=== PATIENT | female | born 1995 | race African-American/Black ===

== ENCOUNTER 2016-12-27 11:03 | Emergency (ER) | payer BC, OTHER, MEDICAID ==
[2016-12-27] MEDS ORDERED: METOCLOPRAMIDE HCL ORAL SOLN 10 MG/10 ML UDCUP PO ONE (11:51)
[2016-12-27] MEDS ORDERED: MAG HYDROX/AL HYDROX/SIMETH SUSP 30 ML UDCUP PO ONE (11:51)
[2016-12-27] MEDS ORDERED: LIDOCAINE 2% VISCOUS SOLN 20 ML UDCUP PO ONE (11:51)
--- NOTE | 2016-12-27 12:04 | ER Document Report ---
ED Medical Screen (RME) - General Chief Complaint: Chest Pain Stated Complaint: CHEST PAIN Time Seen by Provider: 12/27/16 11:51 Notes: Patient is a 21-year-old female, 8-month-old presents with intermittent substernal chest pain and SOB. She says the chest pain is a burning sensation and worse when she lies down. She has had increasing shortness of breath over the past few days. She denies abdominal pain, leakage of fluid, leg swelling, vaginal bleeding, cough, nausea or vomiting. PE: Tachycardia, Lungs CTAB, No respiratory distress. I have greeted and performed a rapid initial assessment of this patient. A comprehensive ED assessment and evaluation of the patient, analysis of test results and completion of the medical decision making process will be conducted by additional ED providers. TRAVEL OUTSIDE OF THE [place] IN LAST 30 DAYS: No - Related Data Allergies/Adverse Reactions: No Known Allergies Allergy (Unverified 12/27/16 11:15) Past Medical History - General Information source: Patient - Social History Chew tobacco use (# tins/day): No Frequency of alcohol use: None Drug Abuse: None Family history: Reviewed & Not Pertinent Renal/ Medical History: Denies: Hx Peritoneal Dialysis Physical Exam - Vital signs Vitals: Temp Pulse Resp BP Pulse Ox 97.9 F 75 16 118/70 98 12/27/16 11:14 12/27/16 11:14 12/27/16 11:14 12/27/16 11:14 12/27/16 11:14 Course - Vital Signs Vital signs: Temp Pulse Resp BP Pulse Ox 97.9 F 75 16 118/70 98 12/27/16 11:14 12/27/16 11:14 12/27/16 11:14 12/27/16 11:14 12/27/16 11:14 - Laboratory Result Diagrams: 12/27/16 12:55 12/27/16 12:55 Laboratory results interpreted by me: 12/27/16 12/27/16 12/27/16 12:55 12:55 12:55 WBC 11.3 H RBC 5.70 H MCV 77 L MCH 25.0 L RDW 15.6 H D-Dimer 1.42 H Carbon Dioxide 21 L BUN 4 L Creatinine 0.50 L
[2016-12-27 13:08] LABS: ABSOLUTE LYMPHOCYTES (AUTO) 2.2 10^3/uL (0.5-4.7); ABSOLUTE MONOCYTES (AUTO) 0.9 10^3/uL (0.1-1.4); ABSOLUTE NEUT (AUTO) 8.1 10^3/uL (1.7-8.2); BASOPHILS % (AUTO) 0.2 % (0-2); EOSINOPHILS % (AUTO) 0.4 % (0-6); HEMATOCRIT 43.8 % (36.0-47.0); HEMOGLOBIN 14.3 g/dL (12.0-15.5); HGB HCT DIFFERENCE -0.9; LYMPHOCYTES % (AUTO) 19.7 % (13-45); MEAN CORPUSCULAR HGB CONC 32.6 g/dL (32.0-36.0); MEAN CORPUSCULAR VOLUME 77 fl (80-97); RED CELL DISTRIBUTION WIDTH 15.6 % (11.5-14.0); SEGMENTED NEUTROPHILS % (AUTO) 71.7 % (42-78); WHITE BLOOD COUNT 11.3 10^3/uL (4.0-10.5)
[2016-12-27 13:25] LABS: ANION GAP 11 (5-19); BLOOD UREA NITROGEN 4 mg/dL (7-20); CALCIUM 9.8 mg/dL (8.4-10.2); CARBON DIOXIDE 21 mmol/L (22-30); CHLORIDE 106 mmol/L (98-107); GLUCOSE 76 mg/dL (75-110); POTASSIUM 4.4 mmol/L (3.6-5.0); SODIUM 138.2 mmol/L (137-145)
[2016-12-27] MEDS ORDERED: FAMOTIDINE 20 MG TABLET PO ONE (14:25)
--- NOTE | 2016-12-27 15:22 | ER Document Report ---
ED General - General Chief Complaint: Chest Pain Stated Complaint: CHEST PAIN Time Seen by Provider: 12/27/16 11:51 Mode of Arrival: Ambulatory Information source: Patient Notes: This is a 21-year-old female at 34 +1 WGA who presents with pleuritic chest pain and shortness of breath which has been present and intermittent for the past 2 weeks, but she had an episode which was more severe this morning, prompting her presentation to the ER. No previous problems with the . No leg pain or swelling. No contractions or abdominal pain. Good movement today. No recent cough, congestion, fevers. Next OB appointment in 2 days. Patient received GI cocktail by provider in triage and she states this did help some with her pain for a few minutes, but that the pleuritic pain has returned. TRAVEL OUTSIDE OF THE [place] IN LAST 30 DAYS: No - Related Data Allergies/Adverse Reactions: No Known Allergies Allergy (Unverified 12/27/16 11:15) Past Medical History - General Information source: Patient - Social History Smoking Status: Never Smoker Chew tobacco use (# tins/day): No Frequency of alcohol use: None Drug Abuse: None Family History: Reviewed & Not Pertinent Patient has suicidal ideation: No Patient has homicidal ideation: No Renal/ Medical History: Denies: Hx Peritoneal Dialysis Review of Systems - Review of Systems Constitutional: No symptoms reported. denies: Chills, Fever EENT: No symptoms reported Cardiovascular: See HPI, Chest pain Respiratory: See HPI, Hurts to breathe. denies: Cough Gastrointestinal: No symptoms reported. denies: Abdominal pain, Nausea, Vomiting Genitourinary: No symptoms reported. denies: Dysuria Musculoskeletal: No symptoms reported Skin: No symptoms reported Hematologic/Lymphatic: No symptoms reported Neurological/Psychological: No symptoms reported Physical Exam - Vital signs Vitals: Temp Pulse Resp BP Pulse Ox 97.9 F 75 16 118/70 98 12/27/16 11:14 12/27/16 11:14 12/27/16 11:14 12/27/16 11:14 12/27/16 11:14 - Notes Notes: PHYSICAL EXAMINATION: GENERAL: Well-appearing, well-nourished, pleasant and conversant and in no acute distress. HEAD: Atraumatic, normocephalic. EYES: Pupils equal round and reactive to light, extraocular movements intact, sclera anicteric, conjunctiva are normal. ENT: nares patent, oropharynx clear without exudates. Moist mucous membranes. NECK: Normal range of motion, supple without lymphadenopathy LUNGS: Breath sounds clear to auscultation bilaterally and equal. No wheezes rales or rhonchi. HEART: Regular rate and rhythm without murmurs ABDOMEN: Soft, gravid, nontender, normoactive bowel sounds. EXTREMITIES: Normal range of motion, no pitting or edema. NEUROLOGICAL: Cranial nerves grossly intact. No gross focal motor or sensory deficits appreciated. PSYCH: Normal mood, normal affect. SKIN: Warm, Dry, normal turgor, no rashes or lesions noted. Course - Re-evaluation Re-evalutation: 12/27/16 21:50 No evidence PE or DVT. Good FHT. I feel symptoms most consistent with GERD. Follow up OB this week as scheduled. Return precautions discussed. - Vital Signs Vital signs: Temp Pulse Resp BP Pulse Ox 97.6 F 78 16 111/59 L 99 12/27/16 17:40 12/27/16 17:40 12/27/16 11:14 12/27/16 17:40 12/27/16 17:40 12/27/16 15:23 - Laboratory Result Diagrams: 12/27/16 12:55 12/27/16 12:55 Laboratory results interpreted by me: 12/27/16 12/27/16 12/27/16 12:55 12:55 12:55 WBC 11.3 H RBC 5.70 H MCV 77 L MCH 25.0 L RDW 15.6 H D-Dimer 1.42 H Carbon Dioxide 21 L BUN 4 L Creatinine 0.50 L - Diagnostic Test Radiology reviewed: Reports reviewed - EKG Interpretation by Me Additional EKG results interpreted by me: 12/27/16 15:23 EKG at 1223 demonstrates sinus tachycardia with a rate of 100, nonspecific T- wave changes. No ST segment elevation or depression. Discharge - Discharge Clinical Impression: Third trimester Chest pain Qualifiers: Chest pain type: unspecified Qualified Code(s): R07.9 - Chest pain, unspecified GERD (gastroesophageal reflux disease) Qualifiers: Esophagitis presence: esophagitis presence not specified Qualified Code(s): K21.9 - Gastro-esophageal reflux disease without esophagitis Condition: Stable Disposition: HOME, SELF-CARE Additional Instructions: Reflux Disease (GERD) Gastro-Esophageal Reflux Disease (GERD) is caused by stomach acid refluxing back up into the esophagus. The valve at the end of the esophagus may be weak. This is common in persons with a hiatal hernia. GERD symptoms can include indigestion, chest pain, heartburn, or food "sticking." Certain foods, alcohol, and aspirin can make GERD worse. Treatment depends on the severity. Usually, antacids or acid-suppressing medicines are used. When the esophagus is acutely inflamed, the physician will often prescribe membrane-protective drugs such as Carafate. Some patients benefit from medication such as Reglan that tightens the valve at the top of the stomach. Avoid those foods that bring on your symptoms. For many people, these foods are coffee, chocolate, onions, garlic, and carbonated drinks. Don't use alcohol, aspirin, caffeine, or tobacco. Don't eat late at night -- within 4 hours of bedtime. Don't over-eat. If necessary, elevate the head of your bed about 4 inches so that stomach acid will not roll up into your esophagus. Call the doctor if you develop severe chest pain, inability to swallow fluids, fever, or worsening symptoms. Your US and CT today show no evidence of blood clots. Follow up with OB this week as scheduled. Avoid fried or spicy foods, as this can make your heartburn worse. Return to the ER for increased pain, breathing trouble, or worsening symptoms or concerns. Prescriptions: Ranitidine HCl [Zantac] 150 mg PO BID #30 tablet Referrals: IGNACIO MEEHAN MD [Primary Care Provider] - Follow up as needed
--- NOTE | 2016-12-27 17:11 | EKG REPORT ---
SEVERITY:- OTHERWISE NORMAL ECG - SINUS TACHYCARDIA : Confirmed by: Angelica Pedro MD 27-Dec-2016 17:10:58
--- NOTE | 2016-12-27 17:12 | EKG REPORT ---
SEVERITY:- BORDERLINE ECG - SINUS TACHYCARDIA BORDERLINE T ABNORMALITIES, DIFFUSE LEADS : Confirmed by: Angelica Pedro MD 27-Dec-2016 17:11:06
[2016-12-27 17:42] VITALS: BP 111/59
== END 2016-12-27 17:42 | disposition home or self-care (01) ==
LOC: ER 11:03
DX: K21.9 Gastro-esophageal reflux disease without esophagitis (principal); R07.9 Chest pain, unspecified; Z3A.34 34 weeks gestation of pregnancy
CPT/HCPCS: 93005; 99285; 36415; 85025; 80048; 85379; 93970; 71010; 71275; 93010; J3490 ×4

== ENCOUNTER 2017-01-23 02:43 | Inpatient (IN) | payer MEDICAID ==
[2017-01-23 03:10] LABS: APPEARANCE,URINE CLEAR; BILIRUBIN,URINE NEGATIVE (NEGATIVE); GLUCOSE, URINE NEGATIVE (NEGATIVE); KETONES,URINE TRACE mg/dL (NEGATIVE); LEUKOCYTE ESTERASE,URINE NEGATIVE (NEGATIVE); NITRITE,URINE NEGATIVE (NEGATIVE); PROTEIN,URINE NEGATIVE (NEGATIVE); URINE SPECIFIC GRAVITY 1.008; UROBILINOGEN,URINE NEGATIVE mg/dL (<2.0)
[2017-01-23] MEDS ORDERED: RINGERS SOLUTION,LACTATED 1,000 ML IV PRN ×2 (03:20→23:13)
[2017-01-23] MEDS ORDERED: PENICILLIN G-K 5 MILLION UNIT VIAL ONE ×6 (03:24→20:09)
[2017-01-23 03:29] LABS: URINE BARBITURATES SCREEN NEGATIVE; URINE METHADONE SCREEN NEGATIVE; URINE OPIATES LOW NEGATIVE; URINE PHENCYCLIDINE SCREEN NEGATIVE
[2017-01-23] MEDS ORDERED: PENICILLIN G POTASSIUM 5,000,000 UNIT in DEXTROSE 5%-WATER 100 ML IV ONE (03:30)
[2017-01-23] MEDS ORDERED: PENICILLIN G-K 5 MILLION UNIT VIAL IV PRN (03:43)
[2017-01-23 04:12] LABS: ABSOLUTE BASOPHILS # (AUTO) 0.1 10^3/uL (0.0-0.2); ABSOLUTE LYMPHOCYTES (AUTO) 2.7 10^3/uL (0.5-4.7); ABSOLUTE MONOCYTES (AUTO) 1.1 10^3/uL (0.1-1.4); BASOPHILS % (AUTO) 0.6 % (0-2); EOSINOPHILS % (AUTO) 0.2 % (0-6); HEMATOCRIT 41.4 % (36.0-47.0); HEMOGLOBIN 13.6 g/dL (12.0-15.5); HGB HCT DIFFERENCE -0.6; LYMPHOCYTES % (AUTO) 18.4 % (13-45); MEAN CORPUSCULAR HEMOGLOBIN 25.3 pg (27.0-33.4); MEAN CORPUSCULAR HGB CONC 32.9 g/dL (32.0-36.0); MEAN CORPUSCULAR VOLUME 77 fl (80-97); MONOCYTES % (AUTO) 7.5 % (3-13); RED BLOOD COUNT 5.38 10^6/uL (3.72-5.28); RED CELL DISTRIBUTION WIDTH 15.2 % (11.5-14.0); SEGMENTED NEUTROPHILS % (AUTO) 73.3 % (42-78); WHITE BLOOD COUNT 14.9 10^3/uL (4.0-10.5)
[2017-01-23] MEDS ORDERED: OXYTOCIN/NORMAL SALINE 1,000 ML IV PRN ×2 (06:50→23:13)
[2017-01-23] MEDS ORDERED: OXYTOCIN/NORMAL SALINE 20 UNIT/1,000 ML RTUINJ ONE ×2 (06:57→23:03)
[2017-01-23] MEDS: PENICILLIN G POTASSIUM 2,500,000 UNIT in DEXTROSE 5%-WATER 50 ML IV SCH ×5 (08:20→21:19)
[2017-01-23] MEDS ORDERED: MAG HYDROX/AL HYDROX/SIMETH SUSP 30 ML UDCUP ONE (08:27)
[2017-01-23] MEDS ORDERED: MAG HYDROX/AL HYDROX/SIMETH SUSP 30 ML UDCUP PO ONE (08:28)
--- NOTE | 2017-01-23 10:41 | L&D Progress Notes ---
PROGRESS NOTES Datetime Report Generated by CPN: 01/23/2017 10:41 PROGRESS NOTE Impression: Rupture of Membranes Procedures: Scalp Electrode Plan: Induction Comment: FSE applied due to difficulty keeping heart rate tracing.Pit at 12 mu-cont induction. VAGINAL EXAM Contractions: irregular SIGNATURE SIGNATURE: [id number] Signature: with User ID: [email or web address]
[2017-01-23] MEDS ORDERED: NALBUPHINE HCL INJ 10 MG/1 ML AMPULE ONE (15:22)
[2017-01-23] MEDS ORDERED: NALBUPHINE HCL INJ 10 MG/1 ML AMPULE INJ ONE (15:22)
[2017-01-23] MEDS ORDERED: FENTANYL CITRATE INJ/PF 100 MCG/2 ML AMPUL ONE (23:02)
[2017-01-23] MEDS ORDERED: EPHEDRINE SULFATE INJ 50 MG/1 ML AMPULE ONE (23:02)
[2017-01-23] MEDS ORDERED: OXYTOCIN 10 UNIT/ML VIAL ONE (23:02)
[2017-01-23] MEDS ORDERED: FENTANYL CITRATE INJ/PF 250 MCG/5 ML AMPULE ONE (23:02)
[2017-01-23] MEDS ORDERED: ACETAMINOPHEN 100 ML IV ONE (23:03)
[2017-01-23] MEDS ORDERED: MIDAZOLAM 2 MG/2 ML INJ ONE (23:03)
[2017-01-23] MEDS ORDERED: ONDANSETRON HCL INJ/PF 4 MG/2 ML SDV ONE ×2 (23:03→23:58)
[2017-01-23] MEDS ORDERED: CITRIC ACID/SODIUM CITRATE ORAL SOLN 15 ML UDCUP ONE (23:10)
[2017-01-23] MEDS ORDERED: CEFAZOLIN 2 GM/D5W RTU 2 GM/50 ML RTUPB IV ONE (23:10)
[2017-01-23] MEDS ORDERED: MEASLES,MUMPS&RUBELLA VACC/PF 0.5 ML VIAL SUBCUT PRN (23:13)
[2017-01-23] MEDS ORDERED: PROMETHAZINE HCL INJ 25 MG/1 ML VIAL IV PRN (23:13)
[2017-01-23] MEDS ORDERED: ACETAMINOPHEN 325 MG TABLET PO PRN (23:13)
[2017-01-23] MEDS ORDERED: DIPH/PERTUSS(ACELL)/TETANUS VAC/PF 0.5 ML SYR (>=10YO) IM PRN (23:13)
[2017-01-23] MEDS ORDERED: HYDROMORPHONE HCL INJ/PF 2 MG/ML AMPULE IV PRN (23:13)
[2017-01-23] MEDS ORDERED: OXYCODONE-ACETAMINOPHEN 5-325 MG TABLET PO PRN (23:13)
[2017-01-23] MEDS ORDERED: SIMETHICONE 80 MG TAB.CHEW PO PRN (23:13)
[2017-01-23] MEDS ORDERED: ACETAMINOPHEN 100 ML IV PRN (23:13)
[2017-01-24] MEDS ORDERED: KETOROLAC TROMETHAMINE INJ/PF 30 MG/1 ML SDV IV ONE ×2
--- NOTE | 2017-01-24 00:42 | Operative Report ---
Operative Report DATE OF SURGERY: 01/24/17 PREOPERATIVE DIAGNOSIS: Cephalopelvic disproportion and contracted pelvis POSTOPERATIVE DIAGNOSIS: Same OPERATION: Primary via low transverse uterine incision. SURGEON: DAMEON JOY ANESTHESIA: Spinal TISSUE REMOVED OR ALTERED: Placenta COMPLICATIONS: None ESTIMATED BLOOD LOSS: 250 cc INTRAOPERATIVE FINDINGS: The patient has a very small pelvis. The baby's head is very pointed. I would not recommend a trial PROCEDURE: Patient was taken to the OR and placed in supine position after her spinal anesthesia. She was prepared and draped in sterile fashion. Fernandez was placed for drainage of the bladder. Low transverse incision was made and carried down the level of the fascia. The fascial incision was made with knife and extended bilaterally with curved Freeman scissors. The fascia was off the rectus muscles using sharp and blunt dissection. The rectus muscles are in the midline. The peritoneum was entered without incident. Bladder blade was placed in uterine segment was identified. A low transverse incision was made creating a bladder flap. Bladder blade was placed low transverse uterine incision was made with the csafe knife and extended with fingertips. The baby was delivered with some fundal pressure. Mouth and nose were suctioned free. The cord is doubly clamped and cut. Baby is passed off to the wanigan clerk in attendance. The placenta was manually extracted with trailing membranes. The uterus was externalized wrapped in a moist lap sponge. Uterine contents wiped free. Uterus was closed with a running locking layer of 0 chromic suture using the second layer to imbricate the first completing a double layer closure of the uterus. The serosa was closed with a running 2-0 chromic stitch. The pelvis was irrigated and suctioned free of fluid the uterus was replaced in the abdomen. The abdominal wall peritoneum was closed with running 2-0 chromic stitch. Fascia was closed with a running 0 Vicryl in 2 segments. Steve's layer was brought together with 0 plain gut stitch and the skin was closed with running subcuticular 4-0 undyed Vicryl stitch. The wound was dressed mother and baby did well.
--- NOTE | 2017-01-24 01:16 | Delivery Summary ---
Del Sum A-C Datetime Report Generated by CPN: 01/24/2017 01:16 DELIVERY PERSONNEL DELIVERY PERSONNEL: ,[id number] Delivery Doctor:: Nathalia Ambriz MD Anesthesiologist:: Rachelle Chapa MD ENROLLED AGENT:: Yousuf Adame CRNA Labor and Delivery Nurse:: Divya Colon RN Insemination Worker:: Divya Colon RN Neonatal Nurse Practitioner:: WILBER Mcleod Nursery Nurse:: Chloé Downing RN Plumber Supervisor/GUEST EXPERIENCE REPRESENTATIVE: ST [facility] Plumber Supervisor/GUEST EXPERIENCE REPRESENTATIVE: Alissa Mcdermott ST MATERNAL INFORMATION Delivery Anesthesia: Spinal Medications After Delivery: Pitocin Bolus-Please Comment; Pitocin Drip 20 Units/1000ml NSS Meds After Delivery Comment: NS with Pitocin 20 units/Liter IVF bolus Maternal Complications: None LABOR SUMMARY EDC: 02/09/2017 00:00 No. Babies in Womb: 1 Attempted: No Labor Anesthesia: IV Sedation LABOR INFORMATION Reason for Induction: Not Applicable Onset of Labor: 01/23/2017 04:16 Oxytocin: Augmentation Group B Beta Strep: positive Name of Antibiotic Given: PCN G Steroids Given: None Reason Steroids Not Administered: Not Applicable MEMBRANES Membranes Rupture Method: Spontaneous Rupture of Membranes: 01/23/2017 02:00 Length of Rupture (hr): 22.00 Amniotic Fluid Color: Clear Amniotic Fluid Amount: Small Amniotic Fluid Odor: Normal STAGES OF LABOR Stage 3 hr: 0 Stage 3 min: 1 Total Time in Labor hr: 19 Total Time in Labor min: 45 VAGINAL DELIVERY Episiotomy: None Laceration Extension: N/A Laceration Type: None Sponge Count Correct: N/A Sharps Count Correct: Yes CSECTION DELIVERY Primary Indication: Arrest of Dilatation Secondary Indication: Other Other Secondary Indication: CPD CSection Urgency: Non-Scheduled CSection Incidence: Primary Labor: Labor Elective: Nonelective CSection Incision: Lower Uterine Transverse BABY A INFORMATION Delivery Date/Time: 01/24/2017 00:00 Method of Delivery: Born in Route : No : N/A Forceps: N/A Vacuum Extraction: Successful Shoulder Dystocia : No ASSISTED DELIVERY BABY A Vacuum Number of Pulls: 1 Vacuum Number of PopOffs: 0 Total Time Vacuum Applied: less than one minute Vacuum/Forceps Comment: One pull with kiwi to assist in delivery of head during section PRESENTATION/POSITION BABY A Presentation: Cephalic Cephalic Presentation: Vertex Vertex Position: OA Breech Presentation: N/A PLACENTA INFORMATION BABY A Placenta Delivery Time : 01/24/2017 00:01 Placenta Method of Delivery: Expressed Placenta Status: Delivered SCORES BABY A Heart Rate 1 min: >100 bpm Resp Effort 1 min: Good Cry Reflex Irritability 1 min: Cough or Sneeze or Pulls Away Muscle Tone 1 min: Active Motion Color 1 min: Blue/Pale Resuscitation Effort 1 min: Tactile Stimulation SCORE 1 MIN: 8 Heart Rate 5 min: >100 bpm Resp Effort 5 min: Good Cry Reflex Irritability 5 min: Cough or Sneeze or Pulls Away Muscle Tone 5 min: Active Motion Color 5 min: Body [place], Extremities Blue Resuscitation Effort 5 min: Tactile Stimulation SCORE 5 MIN: 9 INFORMATION BABY A Gestational Age at Delivery: 37.5 Gestational Status: Early Term- 37- 38.6 Weeks Outcome : Liveborn Condition : Stable Sex: Male IDENTIFICATION BABY A Infant Verification Date/Time: 01/24/2017 01:10 ID Band Number: [id number] Mother's Name Verified: Yes RN Verifying : RN Darbysmann Additional Verifying Personnel: RN Monk WEIGHT/LENGTH BABY A Infant Birthweight (gm): 2860 Infant Weight (lb): 6 Infant Weight (oz): 5 Length (in): 20.00 Length (cm): 50.80 CORD INFORMATION BABY A No. Cord Vessels: 3 Nuchal Cord : N/A Cord Blood Taken: Yes-For Eval (Mom's Blood Type - or O+) Suction: Mouth ASSESSMENT BABY A Physical Findings at Delivery: Caput Succedaneum; Molding of the Head Respirations: Appears Normal Skin to Skin: No Interior Design Instructor/ALS Called : No Infant Care By: RN Downing and CHIEF SCIENTIST Matters Transferred To: [facility] BABY B INFORMATION : N/A
--- NOTE | 2017-01-24 02:50 | Admission Physical ---
Datetime Report Generated by CPN: 01/24/2017 02:50 CURRENT ADMISSION Hx Assessment: The History has been Reviewed and is Current Chief Complaint: Suspected Ruptured Membranes Admit Plan: Initiate Labor Protocol ALLERGIES Medication Allergies: No Medication Allergies: No Known Allergies (01/23/2017) Medication Allergies: No Known Allergies (12/27/2016) Latex: No Latex Allergies Food Allergies: N/A Environmental Allergies: N/A OBSTETRICAL HISTORY EDC: 02/09/2017 00:00 : 2 Para: 0 Term: 0 : 0 SAB: 0 IAB: 1 Ectopic: 0 Livin Cesareans: 0 VBACs: 0 Multiple Births: 0 Gestational Diabetes: No Rh Sensitization: No Incompetent Cervix: No WILLIE: No Infertility: No ART Treatment: No Uterine Anomaly: No IUGR: No Hx Previous C/S: No Macrosomia: No Hx Loss/Stillborn: No PIH: No Hx : No Placenta Previa/Abruption: No Depression/PP Depression: No PTL/PROM: No Post Hemorrhage: No Current Procedures: Ultrasound Obstetrical History Comments: G1: IAB 2015 G2: current , CF screen positive SEE RECORDS Alcohol: No Marijuana : No Cocaine: No Other Illicit Drugs: No Cigarettes: Never Smoker. [id number] MEDICAL HISTORY Diabetes: No Blood Transfusion: No Pulmonary Disease (Asthma, TB): No Breast Disease: No Hypertension: No Charge Entry Surgery: No Heart Disease: No Hosp/Surgery: No Autoimmune Disorder: No Anesthetic Complications: No Kidney Disease: No Abnormal Pap Smear: No Neuro/Epilepsy: No Psychiatric Disorders: No Other Medical Diseases: No Hepatitis/Liver Disease: No Significant Family History: No Varicosities/Phlebitis: No Trauma/Violence : No Thyroid Dysfunction: No INFECTIOUS HISTORY Gonorrhea: No Genital Herpes: No Chlamydia: No Tuberculosis: No Syphilis: No Hepatitis: No HIV/AIDS Exposure: No Rash or Viral Illness: No HPV: No PHYSICAL EXAM General: Normal HEENT: Normal Neurologic: Normal Thyroid: Normal Heart: Normal Lungs: Normal Breast: Normal Back: Normal Abdomen: Normal Genitourinary Exam: Normal Extremities: Normal DTRs: Normal Pelvic Type: Adequate Physical Exam Comments: gross rom with clear fluid gbs + VAGINAL EXAM Contraction Comments: irregular FETUS A EGA: 37.4 Monitoring: External US FHR Category: Category I Admit Comment: Admit and initiate gbs prophylaxis. Allow to ambulate for 1 hr after that if fhr remains reassuring and then augment with pit if not in adequate pattern. PLANS FOR LABOR AND DELIVERY Labor and Delivery: None Other Pain Management Plans: unsure Feeding Preference: Breast Benefit of Breast Feed Discussed: Yes Circumcision: Yes INFORMED CONSENT Signature: with User ID: [email or web address]
[2017-01-24] MEDS: OXYCODONE-ACETAMINOPHEN 5-325 MG TABLET PO PRN ×3 (04:37→22:12)
[2017-01-24] MEDS: KETOROLAC TROMETHAMINE INJ/PF 30 MG/1 ML SDV IV SCH ×3 (05:18→21:42)
[2017-01-24 06:59] LABS: HEMATOCRIT 35.4 % (36.0-47.0); HGB HCT DIFFERENCE -1.2; MEAN CORPUSCULAR HEMOGLOBIN 25.3 pg (27.0-33.4); MEAN CORPUSCULAR HGB CONC 32.1 g/dL (32.0-36.0); MEAN CORPUSCULAR VOLUME 79 fl (80-97); RED BLOOD COUNT 4.49 10^6/uL (3.72-5.28); RED CELL DISTRIBUTION WIDTH 15.6 % (11.5-14.0); WHITE BLOOD COUNT 13.3 10^3/uL (4.0-10.5)
[2017-01-24 07:14] LABS: HEMOGLOBIN 11.4 g/dL (12.0-15.5)
[2017-01-24] MEDS: DOCUSATE SODIUM 100 MG CAPSULE PO SCH ×2 (10:14→17:39)
[2017-01-24] MEDS: PRENATAL VITAMIN W-O CA NO5/FE FUMARATE/FA CAPSULE PO SCH (10:15)
--- NOTE | 2017-01-24 10:19 | PDOC PROGRESS REPORT ---
Subjective-OB Subjective: Post Delivery Day: 21 year old. Denies any needs at this time Doing well, pain under control, took Percocet recently, scant bleeding, plans to breast feed, taking food well and liquids, family at BS Physical Exam (OB) Vital Signs: Temp Pulse Resp BP Pulse Ox 97.4 F 93 16 114/67 100 01/24/17 07:55 01/24/17 07:55 01/24/17 07:55 01/24/17 07:55 01/24/17 07:55 Intake & Output 01/23/17 01/24/17 01/25/17 06:59 06:59 06:59 Intake Total 500 Output Total 500 Balance 500 -500 Weight 82.35 kg - PIH/Pre-Eclampsia Clonus: Negative - Dressing Removed: No Incision: Dressing Closure Type: opsite - Lochia Lochia Amount: Scant < 10 ml Lochia Color: Rubra/Red - Abdomen Description: Tender, Soft Hernia Present: No Fundal Description: Firm, Midline Fundal Height: u/u - u/2 Objective-Diagnostic Laboratory: 01/24/17 06:33 01/24/17 06:33 WBC 13.3 H RBC 4.49 Hgb 11.4 L D Hct 35.4 L MCV 79 L MCH 25.3 L MCHC 32.1 RDW 15.6 H Plt Count 192 Assessment and Plan(PN) - Assessment and Plan (1) GBS (group B Streptococcus carrier), +RV culture, currently Is this a current diagnosis for this admission?: Yes (2) History of delivery, currently Is this a current diagnosis for this admission?: Yes - Time Spent with Patient Time with patient: Less than 15 minutes Medications reviewed and adjusted accordingly: Yes - Disposition Anticipated Discharge: Home Within: within 48 hours
[2017-01-25] MEDS: IBUPROFEN 800 MG TABLET PO SCH ×3 (05:15→18:55)
[2017-01-25] MEDS: OXYCODONE-ACETAMINOPHEN 5-325 MG TABLET PO PRN ×2 (05:15→22:09)
[2017-01-25] MEDS: DOCUSATE SODIUM 100 MG CAPSULE PO SCH ×2 (10:29→18:55)
[2017-01-25] MEDS: PRENATAL VITAMIN W-O CA NO5/FE FUMARATE/FA CAPSULE PO SCH (10:29)
--- NOTE | 2017-01-25 12:19 | PDOC PROGRESS REPORT ---
Subjective-OB Subjective: Post Delivery Day: 21 year old. Denies any needs at this time doing well offers no complaints abdominal binding in place ff@u-2 mild lochia ambulating well well anticipate d/c in AM Physical Exam (OB) Vital Signs: Temp Pulse Resp BP Pulse Ox 98.1 F 89 18 103/48 L 100 01/25/17 07:33 01/25/17 07:33 01/25/17 07:33 01/25/17 07:33 01/25/17 07:33 Intake & Output 01/24/17 01/25/17 01/26/17 06:59 06:59 06:59 Intake Total 500 Output Total 1100 Balance 500 -1100 - PIH/Pre-Eclampsia Clonus: Negative - Dressing Removed: No - opsite Incision: Dressing Closure Type: Sutures - Lochia Lochia Amount: Scant < 10 ml Lochia Color: Rubra/Red - Abdomen Description: Tender, Soft Hernia Present: No Fundal Description: Firm, Midline Fundal Height: u/u - u/2 Objective-Diagnostic Laboratory: 01/24/17 06:33 Assessment and Plan(PN) - Time Spent with Patient Medications reviewed and adjusted accordingly: Yes - Disposition Anticipated Discharge: Home
[2017-01-26] MEDS: IBUPROFEN 800 MG TABLET PO SCH ×2 (00:50→05:07)
[2017-01-26] MEDS: PRENATAL VITAMIN W-O CA NO5/FE FUMARATE/FA CAPSULE PO SCH (09:44)
[2017-01-26] MEDS: DOCUSATE SODIUM 100 MG CAPSULE PO SCH (09:44)
--- NOTE | 2017-01-26 10:12 | PDOC DISCHARGE SUMMARY ---
Final Diagnosis Discharge Date: 01/26/17 - Final Diagnosis (1) Status post primary low transverse section Is this a current diagnosis for this admission?: Yes (2) Acute blood loss anemia Is this a current diagnosis for this admission?: Yes (3) GBS (group B Streptococcus carrier), +RV culture, currently Is this a current diagnosis for this admission?: Yes Discharge Data - Discharge Medication Home Medications: Vit #76/Iron,Carb/FA [Pnv 29-1 Tablet] 1 tab PO DAILY 01/23/17 Docusate Sodium [Colace 100 mg Capsule] 100 mg PO BID #60 capsule 01/26/17 Ferrous Sulfate 325 mg PO BID PRN #60 tablet. 01/26/17 Ibuprofen [Motrin 800 mg Tablet] 800 mg PO Q6 #60 tablet 01/26/17 Oxycodone HCl/Acetaminophen [Percocet 5-325 mg Tablet] 2 tab PO Q4HP PRN #30 tablet 01/26/17 Gestational Age: 37.5 Reason(s) for Admission: Onset of Labor Procedures: NST Intrapartum Procedure(s): : Low Cervical, Transverse - Data Baby 1 Male at 1 minute: 8 at 5 minutes: 9 Weight: 2860 kg Home with Mother: Yes Complications: No - Diagnosis Test Laboratory: Temp Pulse Resp BP Pulse Ox 98.0 F 80 16 131/87 H 100 01/26/17 07:45 01/26/17 07:45 01/26/17 07:45 01/26/17 07:45 01/26/17 07:45 01/23/17 01/23/17 01/24/17 02:55 04:00 06:33 RBC 5.38 H 4.49 Hgb 13.6 11.4 L D Hct 41.4 35.4 L Urine Opiates Screen NEGATIVE - Discharge information/Instructions Discharge Activity: Balance Activity w/Rest, No Driving, No Lifting Over 10 Pounds, Pelvic Rest, Slowly Increase Activity, No tub bath Discharge Diet: Regular Disposition: HOME, SELF-CARE Follow up with: [facility] in: 1, Weeks
[2017-01-26 11:44] VITALS: BP 127/70
== END 2017-01-26 11:50 | disposition home or self-care (01) | DRG 765 ==
LOC: LC 02:43 → LR 03:27 → 2S 01-24 02:49
PROVIDERS: ADMIT Specialist; ATTEND Obstetrics & Gynecology
PROC: 4A1HXCZ Monitoring of Products of Conception, Cardiac Rate, External Approach (ICD-10-PCS; 2017-01-23)
PROC: 10D00Z1 Extraction of Products of Conception, Low, Open Approach (ICD-10-PCS; principal; 2017-01-24)
DX: O62.1 Secondary uterine inertia (principal); D62 Acute posthemorrhagic anemia; O65.9 Obstructed labor due to maternal pelvic abnormality, unspecified; O99.824 Streptococcus B carrier state complicating childbirth; O99.02 Anemia complicating childbirth; Z3A.37 37 weeks gestation of pregnancy; Z37.0 Single live birth
CPT/HCPCS: 1961; 36415; 80307; 81005; 85025; 85027; 86592; 86850; 86900; 86901; 94799; J0131; J0690; J1170; J1885; J2250; J2300; J2405; J2540; J2590; J3010; J3490